=== PATIENT | female | born 1990 | race African-American/Black ===

== ENCOUNTER 2017-04-20 10:35 | Emergency (ER) | payer OTHER ==
[~2017-04-20] VITALS: Ht 170.2 cm; Wt 82.4 kg
[~2017-04-20 10:35] MED LIST: ACETAMIN; BACTRIM,SEPT1 TABLET; HYDROCODON-ACE1 EAC7 PO; NAPROSYN500 MG PO; PERIDEX1 ML MM
[2017-04-20 11:23] LABS: APPEARANCE CLEAR ((CLEAR)); BILIRUBIN NEGATIVE; BLOOD SMALL; COLOR YELLOW ((YELLOW)); GLUCOSE (STRIP) NEGATIVE; KETONES NEGATIVE; LEUKOCYTES NEGATIVE; NITRITE NEGATIVE; PROTEIN (STRIP) NEGATIVE; SPECIFIC GRAVITY 1.024 (1.000-1.030); UROBILINOGEN 0.2 MG/DL (0.2-1.0)
[2017-04-20 11:26] LABS: HEMATOCRIT 41.4 % (36.0-46.0); HEMOGLOBIN 13.2 G/DL (11.9-15.5); MCH 29.5 PG (29.0-34.0); MCHC 31.9 G/DL (30.0-36.0); MCV 92.4 FL (83-99); PLATELET COUNT 261 K/uL (156-360); RBC DIS.WIDTH-CV 12.5 % (11.8-14.6); RBC DIS.WIDTH-SD 42.8 % (39-53); RED BLOOD COUNT 4.48 M/uL (3.80-5.20); WHITE BLOOD COUNT 6.4 K/uL (4.1-10.2)
[2017-04-20 11:26] LABS: BACTERIA RARE /HPF; EPITHELIAL CELLS 1+ /HPF; MUCUS TRACE /LPF; RED BLOOD CELLS 30-40 /HPF (0-5); WHITE BLOOD CELLS 0-5 /HPF (0-5)
[2017-04-20 11:36] LABS: ALBUMIN 4.3 g/dL (3.2-4.8); CHLORIDE 110 mEq/L (99-109); POTASSIUM 4.2 mEq/L (3.7-5.4); SODIUM 138 mEq/L (136-147)
[2017-04-20 11:38] LABS: GLUCOSE 99 mg/dL (70-99); TOTAL PROTEIN 7.3 g/dL (6.4-8.3)
[2017-04-20 11:40] LABS: TOTAL BILIRUBIN 0.4 mg/dL (0.0-1.0)
[2017-04-20 11:42] LABS: ALKALINE PHOSPHATASE 84 IU/L (3-129); CREATININE 0.8 mg/dL (0.6-1.3); GFR ESTIMATE (CALCULATED) > 59 mL/min/
[2017-04-20 11:43] LABS: UREA NITROGEN (BUN) 12 mg/dL (9-23)
[2017-04-20 11:44] LABS: AST (GOT) 15 IU/L (2-34)
[2017-04-20 11:45] LABS: ALT (GPT) 13 IU/L (3-49); LIPASE 25 U/L (1.0-51.0)
[2017-04-20 11:51] LABS: QUANTITATIVE HCG < 4.0 MIU/ML
[2017-04-20] MEDS ORDERED: ZOFRAN ODT4 MG PO (13:23)
[2017-04-20] MEDS ORDERED: BENTYL10 MG PO (13:23)
[2017-04-20 13:29] VITALS: BP 133/65
== END 2017-04-20 13:30 | disposition home or self-care (01) ==
LOC: EME 10:35
PROVIDERS: Nurse Practitioner Family
DX: R10.9 Unspecified abdominal pain (principal); F17.200 Nicotine dependence, unspecified, uncomplicated
CPT/HCPCS: 74177; 80053; 81003; 83690; 84702; 85027; J1885; J2405; J3010; J7030

== ENCOUNTER 2017-05-17 11:25 | Emergency (ER) | payer OTHER ==
[~2017-05-17] VITALS: Ht 167.6 cm; Wt 82.9 kg
[~2017-05-17 11:25] MED LIST changes: +BENTYL10 MG PO; +ZOFRAN ODT4 MG PO
[2017-05-17 11:27] VITALS: BP 139/126
[2017-05-17 11:48] LABS: HEMATOCRIT 41.2 % (36.0-46.0); HEMOGLOBIN 13.6 G/DL (11.9-15.5); MCH 30.2 PG (29.0-34.0); MCV 91.6 FL (83-99); PLATELET COUNT 258 K/uL (156-360); RBC DIS.WIDTH-CV 12.3 % (11.8-14.6); RBC DIS.WIDTH-SD 41.4 % (39-53); WHITE BLOOD COUNT 7.9 K/uL (4.1-10.2)
[2017-05-17 12:04] LABS: ALBUMIN 4.4 G/DL (3.2-4.8); CHLORIDE 110 MEQ/L (99-109); SODIUM 139 MEQ/L (136-147); TOTAL BILIRUBIN 0.4 MG/DL (0.0-1.0)
[2017-05-17 12:10] LABS: ALKALINE PHOSPHATASE 74 IU/L (3-129); ALT (GPT) 11 IU/L (3-49); AST (GOT) 16 IU/L (2-34); CREATININE 0.8 MG/DL (0.6-1.3); GFR ESTIMATE (CALCULATED) > 59 mL/min/; GLUCOSE 98 mg/dL (70-99); TOTAL PROTEIN 7.5 G/DL (6.4-8.3); UREA NITROGEN (BUN) 9 mg/dL (9-23)
[2017-05-17 12:13] LABS: QUANTITATIVE HCG < 4.0 MIU/ML
[2017-05-17 14:04] LABS: LIPASE 23 U/L (1.0-51.0)
[2017-05-17 15:06] LABS: APPEARANCE CLEAR ((CLEAR)); BILIRUBIN NEGATIVE; BLOOD LARGE; COLOR YELLOW ((YELLOW)); GLUCOSE (STRIP) NEGATIVE; KETONES NEGATIVE; LEUKOCYTES NEGATIVE; NITRITE NEGATIVE; PROTEIN (STRIP) NEGATIVE; SPECIFIC GRAVITY 1.013 (1.000-1.030); UROBILINOGEN 0.2 MG/DL (0.2-1.0)
[2017-05-17 15:30] LABS: BACTERIA NONE SEEN /HPF; EPITHELIAL CELLS RARE /HPF; MUCUS 1+ /LPF; WHITE BLOOD CELLS 0-5 /HPF (0-5)
[2017-05-17] MEDS ORDERED: ZOFRAN4 MG SL (15:39)
[2017-05-17] MEDS ORDERED: BENTYL10 MG PO (15:39)
[2017-05-17 15:54] LABS: RED BLOOD CELLS 0-5 /HPF (0-5); UCUL ADDED? NO
== END 2017-05-17 16:07 | disposition home or self-care (01) ==
LOC: EME 11:25
DX: R10.31 Right lower quadrant pain (principal); F17.200 Nicotine dependence, unspecified, uncomplicated
CPT/HCPCS: 74177; 80053; 81003; 83690; 84702; 85027; 99281; 99285; J1885; J2405; J7030

== ENCOUNTER 2017-08-11 06:38 | Day surgery (SDC) | payer OTHER ==
[~2017-08-11] VITALS: Ht 167.6 cm; Wt 72.5 kg
[~2017-08-11 06:38] MED LIST changes: +TRAMADOL HCL50 MG PO; +VENTOLIN HFA18 GM IH; +ZOFRAN4 MG SL
[2017-08-11 06:57] VITALS: BP 128/77
[2017-08-11 10:10] VITALS: BP 141/86
[2017-08-11 10:49] VITALS: BP 129/75
== END 2017-08-11 10:50 | disposition home or self-care (01) ==
LOC: SDC 06:38
DX: N73.6 Female pelvic peritoneal adhesions (postinfective) (principal); N94.6 Dysmenorrhea, unspecified; K52.3 Indeterminate colitis; F17.200 Nicotine dependence, unspecified, uncomplicated; K29.70 Gastritis, unspecified, without bleeding; J30.9 Allergic rhinitis, unspecified; Z86.19 Personal history of other infectious and parasitic diseases
CPT/HCPCS: 88304; J0330; J0690; J1100; J2001; J2405; J2710; J3010; J7643; S0020